=== PATIENT | male | born 1950 | race Caucasian/White ===

== ENCOUNTER 2019-03-15 11:58 | Emergency (ER) | payer BC, MEDICARE ==
[~2019-03-15 11:58] MED LIST: ISOVUE-370 76%-LOCM 1 ML ONE
[2019-03-15 12:27] LABS: #Eosinphils 0.3 thou/uL (0.0-0.7); #Lymphocytes 1.7 thou/uL (1.20-3.40); #Monocytes 0.5 thou/uL (0.11-0.59); #Neutrophils 2.9 thou/uL (1.40-6.50); %Basophils 0.2 % (0.0-1.0); %Eosinophils 5.6 % (0.0-10.0); %Lymphocytes 31.1 % (21.0-51.0); %Monocytes 8.9 % (0.0-10.0); %Neutrophils 54.1 % (42.0-75.0); Hemoglobin 11.5 g/dL (14.0-18.0); Mean Corpuscular HGB CONC 32.9 g/dL (32.0-36.0); Mean Corpuscular Hemoglobin 27.4 pg (27.0-31.0); Mean Corpuscular Volume 83.3 fL (78.0-98.0); Mean Platelet Volume 5.6 fL (7.4-10.4); Platelet Count 459 thou/uL (130-400); RBC Distribution Width 14.3 % (11.5-14.5); Red Blood Cell (RBC) Count 4.19 mill/uL (4.70-6.10); White Blood Cell (WBC) Count 5.3 thou/uL (4.8-10.8)
[2019-03-15 12:47] LABS: ALT (SGPT) 36 U/L (8-55); AST (SGOT) 28 U/L (5-34); Albumin 3.5 g/dL (3.4-4.8); Alkaline Phosphatase 221 U/L (40-150); Anion Gap 12 mmol/L (10-20); BUN (Urea Nitrogen) 15 mg/dL (8.4-25.7); Bilirubin, Total 1.5 mg/dL (0.2-1.2); Calc. Creatinine Clearance 0 mL/min (70-130); Calcium 9.3 mg/dL (7.8-10.44); Carbon Dioxide 26 mmol/L (23-31); Chloride 99 mmol/L (98-107); Estimated GFR-MDRD Greater than 90; Globulin 3.7 g/dL (2.4-3.5); Glucose 157 mg/dL (80-115); Potassium 3.5 mmol/L (3.5-5.1); Protein, Total 7.2 g/dL (5.8-8.1); Sodium 133 mmol/L (136-145)
--- NOTE | 2019-03-15 14:29 | CT ---
CT PULMONARY ANGIOGRAM WITH IV CONTRAST AND 3-D POSTPROCESSING: HISTORY: Shortness of breath, syncope FINDINGS: There is good contrast opacification of the pulmonary arterial vasculature without filling defects to suggest pulmonary embolism. Thoracic aorta is well opacified without aneurysm or dissection. No pleural or pericardial effusions are identified. There are changes of median sternotomy and CABG. A small pericardial effusion is present. No pleural effusions are identified. No pneumothoraces, foca l areas of consolidation or lung mass/nodules are seen. There are degenerative changes in the spine. There is biliary air and a biliary stent. IMPRESSION: No CT evidence of pulmonary embolism.
--- NOTE | 2019-03-16 14:37 | EKG ---
Test Reason : Blood Pressure : / mmHG Vent. Rate : 076 BPM Atrial Rate : 076 BPM P-R Int : 156 ms QRS Dur : 082 ms QT Int : 380 ms P-R-T Axes : 044 011 086 degrees QTc Int : 427 ms Normal sinus rhythm Normal ECG Confirmed by KIMBERLY ABDULLAHI D.O. ([id number]), news editor CHECO CORONADO ([id number]) on 03/16/2019 2:37:09 PM Referred By: Confirmed By:KIMBERLY ABDULLAHI D.O.
== END 2019-03-15 15:08 | disposition home or self-care (01) ==
LOC: ERS 11:58
DX: R55 Syncope and collapse (principal); I25.10 Atherosclerotic heart disease of native coronary artery without angina pectoris; I25.2 Old myocardial infarction; E78.5 Hyperlipidemia, unspecified
CPT/HCPCS: 36415; 71275; 80053; 85025; 85379; 93005

== ENCOUNTER 2019-03-26 11:45 | Outpatient (CLI) | payer BC, MEDICARE ==
--- NOTE | 2019-03-26 13:14 | MRI ---
MRI CERVICAL SPINE: HISTORY: Cervical radiculopathy. Multiplanar multisequence noncontrast enhanced MRI images cervical spine. There is prominence of the transverse ligament and panus surrounding C1-2 articulation. This compress es the thecal sac and results in moderate cord compression. C2-3: There is a broad-based disc osteophyte complex centrally resulting in moderate thecal sac compr ession. Moderate right and mild left-sided neural foraminal narrowing seen due to osteophyte encroachment. C3-4: There is disc desiccation. There is a broad-based disc osteophyte complex centrally compressing the thecal sac resulting in moderate to severe thecal sac compression. There is moderate cord compression. Moderate to severe bilateral neural foraminal narrowing is seen due to uncovertebral os teophyte hypertrophy. C4-5: There is a broad-based disc osteophyte complex centrally compressing the thecal sac resulting i n moderate thecal sac compression. The spinal cord is not significantly compressed. Moderate bilateral C4-5 neural foraminal narrowing is seen due to uncovertebral osteophyte hypertrophy. C5-6: There is disc desiccation seen. There is a broad-based disc osteophyte complex seen compressing the thecal sac resulting in severe thecal sac compression. Moderate to severe cord compression seen. There is severe neural foraminal narrowing due to uncovertebral osteophyte hypertrophy. C6-7: Disc desiccation seen. There is a broad-based disc bulge compressing the thecal sac resulting i n moderate to severe thecal sac compression. Moderate cord compression seen. Moderate bilateral neural foraminal narrowing seen. C7-T1: Unremarkable. IMPRESSION: Multilevel central and neural foraminal narrowing stenosis as described above. Transcribed Date/Time: 03/26/2019 1:20 PM
== END 2019-03-26 11:46 | disposition home or self-care (01) ==
LOC: SCSMRI 11:45
PROVIDERS: ATTEND Family Medicine
DX: M54.12 Radiculopathy, cervical region (principal); M48.02 Spinal stenosis, cervical region
CPT/HCPCS: 72141

== ENCOUNTER 2019-04-26 14:21 | Outpatient (CLI) | payer BC, MEDICARE ==
--- NOTE | 2019-04-26 15:02 | RAD ---
RADIOGRAPH CERVICAL SPINE 3 VIEWS: DATE: 04/26/2019. HISTORY: A 68-year-old female with bilateral cervical radiculopathy. TECHNIQUE: Three lateral views in flexion, extension, and neutral. FINDINGS: There are bulky end plate marginal osteophytes that protrude anteriorly into the prevertebral space a t C4-5, C5-6, C6-7. Moderate-sized anterior osteophytes at C3-4. The disk spaces are maintained. T hese bridging osteophytes result in loss of lordosis, and inflexibility between their levels. There are posterior end plate marginal osteophytes that encroach upon the anterior aspect of the spinal can al at C5-6. The bony cervical spinal canal is diffusely small in caliber on a congenital basis due t o developmentally short pedicles. This is exacerbated by the posterior end plate osteophyte at C5-6, and by ligamentum flavum thickening and central small disk protrusion at C3-4 as demonstrated on the MRI of 03/26/2019, with impingement on the spinal cord at those levels. There is flexion and extensi on motion with fulcrum at C7-T1. The actual C7-T1 level is obscured by the shoulders. There is no in stability. IMPRESSION: 1. Decreased range of motion due to DISH (diffuse idiopathic skeletal hyperostosis). 2. 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 3. No instability identified. BEVERLY [] POS: GEORGINA
== END 2019-04-26 14:22 | disposition home or self-care (01) ==
LOC: TBSIIMAG 14:21
PROVIDERS: ATTEND Neurological Surgery
DX: M48.02 Spinal stenosis, cervical region (principal); M48.12 Ankylosing hyperostosis [Forestier], cervical region; M47.812 Spondylosis without myelopathy or radiculopathy, cervical region
CPT/HCPCS: 72040

== ENCOUNTER 2019-05-16 16:00 | Inpatient (IN) | payer BC, MEDICARE ==
--- NOTE | 2019-05-15 16:55 | HP ---
HISTORY OF PRESENT ILLNESS: Mr. Arreguin is a 68-year-old male, who reports to our office for evaluation of left arm pain and weakness. The patient states that following his heart surgery approximately two and half months ago, he had significant weakness, numbness, and tingling pain in the left arm and hand. He has been unable to extend and flex his fingers on the left side. Decreased sensation in pinky, ring, and middle fingers and pointer fingers on the left. The worst is at the pinky. The patient has significant weakness on the left side, pain is radiating from behind the shoulder blade down the back of that arm to his hand. Since he has started Lyrica, most of the pain has improved, now, mostly tingling and numbness. The patient has tried medications, hot and cold. No physical therapy or injections at this time. The patient denies right-sided symptoms. No neck pain and balance is acceptable. REVIEW OF SYSTEMS: A 10-point review of systems has been completed and is negative other than stated in the above HPI. PAST MEDICAL HISTORY: hyperlipidemia, heart disease, and diabetes. PAST SURGICAL HISTORY: Cardiac bypass, cholecystectomy, and ERCP. SOCIAL HISTORY: The patient is a former smoker. Denies alcohol or drug use. Sexually active. He is . MEDICATIONS: Lyrica, baby aspirin, atorvastatin, and metoprolol. ALLERGIES: NO KNOWN DRUG ALLERGIES. PHYSICAL EXAMINATION: CONSTITUTIONAL: The patient is awake, alert, and oriented x3. NECK: Soft and supple. No masses are noted. Range of motion is intact and nonpainful. RESPIRATIONS: Normal work of breathing on room air. NEUROLOGIC: Awake, alert, and oriented x3. Memory, attention, and fund of knowledge are normal. Cranial nerves, grossly intact. Upper extremities, 5/5 bilateral strength in deltoids; left 4/5, biceps; left 3+/5, triceps; left 3+/5, wrist extension; left 2/5, finger extension; left 2/5, finger intrinsics; decreased sensation in left hand gradually improving towards the thumb. Reflexes are brisk. Spurling is negative. Negative Tinel's . IMAGING DATA: Cervical MRI, severe cervical stenosis with cord compression at C3-C4 and C5-C6; moderate stenosis, left greater than right, C6-C7. ASSESSMENT AND PLAN: Cervical stenosis with cervical radiculopathy without myelopathy. Dr. Denson has offered surgery ACDF; C3-C4, C5-C6, and C6-C7. The patient states that he understands the risks and is willing to proceed with surgery. Job ID: [id number]
[2019-05-17] MEDS ORDERED: Sodium Chloride 0.9% 10 ML ONE ×2 (10:26→14:47)
[2019-05-17] MEDS ORDERED: Thrombin 5000 UNITS/5 ML VIAL ONE (10:26)
[2019-05-17 10:59] LABS: #Basophils 0.1 thou/uL (0.0-0.2); #Eosinphils 0.2 thou/uL (0.0-0.7); #Monocytes 0.6 thou/uL (0.11-0.59); #Neutrophils 2.8 thou/uL (1.40-6.50); %Eosinophils 3.2 % (0.0-10.0); %Lymphocytes 44.6 % (21.0-51.0); %Monocytes 8.4 % (0.0-10.0); %Neutrophils 42.8 % (42.0-75.0); Hemoglobin 14.3 g/dL (14.0-18.0); Mean Corpuscular HGB CONC 32.1 g/dL (32.0-36.0); Mean Corpuscular Hemoglobin 26.7 pg (27.0-31.0); Platelet Count 288 thou/uL (130-400); RBC Distribution Width 14.8 % (11.5-14.5); Red Blood Cell (RBC) Count 5.37 mill/uL (4.70-6.10); White Blood Cell (WBC) Count 6.6 thou/uL (4.8-10.8)
[2019-05-17 11:03] LABS: PTT 32.9 SEC (22.9-36.1); Prothrombin Time 13.4 SEC (12.0-14.7)
[2019-05-17] MEDS ORDERED: Fentanyl 100 MCG/2 ML VIAL ONE (11:21)
[2019-05-17] MEDS ORDERED: Glycopyrrolate 0.2 MG/ML 5 ML SYRINGE ONE (16:08)
[2019-05-17] MEDS ORDERED: PROPOFOL 200 MG/20 ML VIAL ONE (16:08)
[2019-05-17] MEDS ORDERED: Dexamethasone 20 MG/5 ML VIAL ONE (16:08)
[2019-05-17] MEDS ORDERED: Lidocaine 1% PF 5 ML VIAL ONE (16:08)
[2019-05-17] MEDS ORDERED: Ondansetron PF 4 MG/2 ML Vial ONE (16:08)
[2019-05-17] MEDS ORDERED: Rocuronium Bromide 10 MG/ML (10ML VIAL) ONE (16:08)
[2019-05-17] MEDS ORDERED: ePHEDrine 50 MG/ML VIAL ONE (16:08)
[2019-05-17] MEDS ORDERED: Vecuronium 10 MG VIAL ONE (16:08)
[2019-05-17] MEDS ORDERED: PHENYLEPHRINE-NS 100 MCG/ML 10 ML SYRINGE ONE (16:08)
[2019-05-17] MEDS ORDERED: Promethazine HCl 25 MG/ML VIAL IM PRN ×2 (16:40→17:07)
[2019-05-17] MEDS ORDERED: Promethazine HCl 25 MG/ML VIAL SLOW IVP PRN (16:40)
[2019-05-17] MEDS ORDERED: Morphine Sulfate 2 MG/ML SYRINGE SLOW IVP PRN (16:40)
[2019-05-17] MEDS ORDERED: PACU-Morphine 4MG/ML VIAL SLOW IVP PRN (16:40)
[2019-05-17] MEDS ORDERED: HYDROmorphone 2 MG/ML VIAL SLOW IVP PRN (16:40)
[2019-05-17] MEDS ORDERED: Ondansetron HCl/PF 4 MG/2 ML Vial IVP PRN (16:40)
[2019-05-17] MEDS ORDERED: Tamsulosin HCl 0.4 MG CAP PO PRN (17:05)
[2019-05-17] MEDS ORDERED: Acetaminophen/Codeine 30-300mg Tablet PO PRN ×2 (17:05)
[2019-05-17] MEDS ORDERED: Morphine 2 MG/ML SYRINGE SLOW IVP PRN (17:05)
[2019-05-17] MEDS ORDERED: tiZANidine HCl 4 MG TAB PO PRN (17:05)
[2019-05-17] MEDS ORDERED: Acetaminophen 325 MG TAB PO PRN (17:05)
[2019-05-17] MEDS ORDERED: diphenhydrAMINE 50 MG/ML VIAL IVP PRN (17:05)
[2019-05-17] MEDS ORDERED: diphenhydrAMINE 25 MG CAP PO PRN (17:05)
[2019-05-17] MEDS ORDERED: Bisacodyl 10 MG SUPP PR PRN (17:07)
[2019-05-17] MEDS ORDERED: Milk Of Magnesia 30 ML UDCUP PO PRN (17:07)
[2019-05-17] MEDS ORDERED: Promethazine 25 MG TAB PO PRN (17:07)
[2019-05-17] MEDS ORDERED: Ondansetron PF 4 MG/2 ML Vial IVP PRN (17:07)
[2019-05-17] MEDS ORDERED: Mag-Al 1200 mg/1200 mg/30 ML UDCUP PO PRN (17:07)
[2019-05-17] MEDS ORDERED: PREGABALIN PO PRN (17:10)
--- NOTE | 2019-05-17 17:20 | EKG ---
Test Reason : PREOP Blood Pressure : / mmHG Vent. Rate : 056 BPM Atrial Rate : 056 BPM P-R Int : 156 ms QRS Dur : 080 ms QT Int : 418 ms P-R-T Axes : 059 000 049 degrees QTc Int : 403 ms Sinus bradycardia with sinus arrhythmia Anterior infarct , age undetermined Abnormal ECG When compared with ECG of 15-MAR-2019 12:31, Nonspecific T wave abnormality no longer evident in Lateral leads Confirmed by DR. Austin GARAY ([id number]) on 05/17/2019 5:20:06 PM Referred By: JAVIER Confirmed By:DR. Austin GARAY
--- NOTE | 2019-05-17 17:32 | OP ---
DATE OF PROCEDURE: 05/17/2019 PAD CUTTER: Nohemi Pena PA-C PREOPERATIVE INDICATION: Prevent neurological deterioration. PREOPERATIVE DIAGNOSES: Multilevel cervical stenosis with myelopathy and radiculopathy. POSTOPERATIVE DIAGNOSES: Multilevel cervical stenosis with myelopathy and radiculopathy. PROCEDURES PERFORMED: Anterior cervical diskectomy, intervertebral arthrodesis, placement of intervertebral biomechanical device, an anterior cervical plating at C3-C4 and separately at C5-C6 and C6-C7, local morselized autograft, morselized allograft, and operating microscope. PREOPERATIVE MEDICATION: Ancef 2 g IV. DRAIN NUMBER: Zero. DRAIN TYPE: None. DESCRIPTION OF PROCEDURE: The patient was brought to the operating room. General endotracheal anesthesia was induced. The patient was positioned supine on the operating table, keeping his neck in normal anatomic alignment. A lateral fluoro radiograph was used to plan our incision. The right side of the neck was sterilely prepped and draped. We opened with a 10 blade knife and controlled bleeding with bipolar cautery. We dissected sharply to the platysma and cut this muscle in-line with our incision. We developed planes above and below the platysma and above the sternocleidomastoid, so that we could dissect superiorly and inferiorly giving us access from C3 through C7. A lateral fluoro radiograph confirmed the levels upon which we were operating. We then elevated the longus colli muscles off the anterior surface of C3 and C4 as well as C5, C6, and C7. We placed a lateral retractors under the longus colli muscles at C3-C4 and removed an anterior osteophyte. We incised the disk space and removed an anterior osteophyte. Distraction pins were placed at C3 and C4 and we distracted across the intervening interspace. We incised the interspace with a 15 blade knife and removed disk contents using curettes and rongeurs. The operative microscope was brought into the field. Under microscopic magnification using microsurgical techniques, we removed the remainder of the intervertebral disk. We accessed the ventral epidural space with a microcurette and used Kerrison rongeurs to remove osteophytes and posterior longitudinal ligament across the entire interspace from one neural foramen to the other. There was no further neural compression after the diskectomy and osteophytectomy. We could visualize motion of the spinal cord through the dura, which was reassuring for decompression. We then prepared the endplates for grafting. We measured the height of the interspace to 7 mm. A 7 mm PEEK intervertebral graft was brought into the field. We loaded this graft with our demineralized bone matrix. The bone removed during osteophytectomy, was carefully cleaned of soft tissue attachments morcellized and added into the demineralized bone matrix as our fusion substrate. This was packed into the PEEK interbody device and that device was advanced into the interspace under radiographic guidance. We then removed our lateral retractors and our distraction pins and moved down to C5-C6 and C6-C7. Our retractors placed under the longus colli muscles that we had elevated. This was at C6. We just placed distraction pins at C5 and C7 and distracted across both of the intervening interspaces. We had to do significant amount of osteophyte removal before we could even enter the interspace here. We incised with a 15 blade knife and removed disk contents using curettes and rongeurs. Continuing under the operating microscope, we removed the remainder of the intervertebral disk. We accessed the ventral epidural space at each interspace with a microcurette and used a Kerrisons to remove post posterior osteophytes and posterior longitudinal ligament across the entire interspace from one neural foramen to the other. Once again, there was good excursion of the spinal cord that was visible through the dura with each heartbeat. This was also quite reassuring for the amount of decompression that we achieved. We entered the neural foramina, had any compression either. We then turned our attention to arthrodesis. We prepared the endplates for grafting at C5-C6 and C6-C7, We measured the height at the interspace to 7 mm at C5-C6 and 10 mm at C6-C7. The appropriately-sized PEEK grafts were brought into the field. Once again, we loaded the PEEK grafts with demineralized bone matrix and morselized autograft and advanced them into the interspaces under radiographic guidance to the appropriate depth. We then removed the operating microscope. A 34 mm anterior cervical plate was brought into the field. We drilled corporation pilot holes through the plate into the vertebral bodies at C5, C6, and C7. We affixed the plate using a fixed angle screws at C7 and variable angle screws at C5 and C6 and then we engaged the locking mechanism over each of the 6 screws. In a similar fashion, we placed a plate at C3-C4. Here, a 12 mm plate was brought into the field. We drilled corporation pilot holes through the plate into C3 and C4 and affixed the plate using fixed angle screws at C4 and variable angle screws at C3. We engaged the locking mechanism over each of these four screws. We irrigated copiously with bacitracin irrigation. We took AP and lateral fluoro radiographs, confirmed adequate positioning of our instrumentation. We closed the wound in anatomical layers. We applied a sterile dressing. This was a clean case, no contamination. Job ID: [id number]
[2019-05-17] MEDS ORDERED: Promethazine HCl 25 MG/ML VIAL ONE (18:07)
[2019-05-17] MEDS: Morphine 4 MG/ML VIAL SLOW IVP PRN (18:51)
[2019-05-17] MEDS ORDERED: Atorvastatin Calcium 40 MG TAB PO SCH (21:00)
[2019-05-17] MEDS: Sodium Chloride 0.9% 1,000 ML IV SCH (21:27)
[2019-05-17] MEDS ORDERED: Cepastat Lozenges 1 LOZ PO PRN (22:11)
[2019-05-17 23:34] VITALS: BMI 26.9
[2019-05-18] MEDS ORDERED: CEFAZOLIN 2 GM in Premix Bag 1 BAG IVPB SCH (00:15)
[2019-05-18] MEDS: Morphine 4 MG/ML VIAL SLOW IVP PRN ×2 (01:03→04:07)
[2019-05-18] MEDS: CEFAZOLIN 2 GM in Sodium Chloride 0.9% 100 ML IVPB SCH ×2 (01:04→08:47)
--- NOTE | 2019-05-18 07:13 | PRG ---
DATE OF SERVICE: 05/18/2019 I saw Mr. Arreguin this morning. He is one day out from an ACDF at C3-C4 and then at C5-C6 and C6-C7. His throat has been sore. Had little bit of coughing yesterday with liquids, but tried a second time, and it went down well. He tells me his arm is still weak. He is hoping for return of function. Overnight, the vitals have been stable. I do not find any new deficits, but there is some significant upper motor neuron weakness including hand intrinsics, finger extensors, and triceps in the left upper extremity. He reports his soaker strength is stronger than it was before. His concurs for that evaluation. Mr. Arreguin eats his breakfast well this morning using a chin tuck method and sitting straight up, then I think he can be discharged. Bandage can be removed today. He can shower tomorrow. He will be on aggressive physical and occupational therapy that will benefit him in recovery. Job ID: [id number]
[2019-05-18] MEDS: Sodium Chloride 0.9% 1,000 ML IV SCH (08:47)
[2019-05-18 10:56] VITALS: BP 113/69; TEMP 98.3
--- NOTE | 2019-05-18 11:45 | PDOC.PN ---
- Subjective Encounter Start Date: 05/18/19 Encounter Start Time: 09:45 Patient seen and examined for med mngt. Follows Dr Rolon. No CP/SOB. Pain controlled. No new complaints. No overnight events - Objective MAR Reviewed: Yes Vital Signs & Weight: Vital Signs (12 hours) Temp Pulse Resp BP BP Pulse Ox 05/18/19 10:55 98.3 F 82 18 113/69 94 L 05/18/19 08:15 98.8 F 74 18 133/76 96 05/18/19 08:00 96 Weight Weight 198 lb 6.4 oz I&O: 05/17/19 05/18/19 05/19/19 06:59 06:59 06:59 Intake Total 20 Balance 20 Result Diagrams: 05/17/19 10:46 Additional Labs: Laboratory Tests 03/15/19 12:19 Sodium 133 L Total Bilirubin 1.5 H AST 28 ALT 36 Alkaline Phosphatase 221 H EKG Reviewed by me: Yes (SB) Phys Exam - Physical Examination Constitutional: NAD Respiratory: no wheezing, no rhonchi Cardiovascular: RRR, no rub midline scar from previous CABG Gastrointestinal: soft, non-tender, positive bowel sounds Musculoskeletal: no edema Neurological: moves all 4 limbs Dx/Plan (1) HTN (hypertension) Code(s): I10 - ESSENTIAL (PRIMARY) HYPERTENSION Status: Chronic (2) CAD (coronary artery disease) Code(s): I25.10 - ATHSCL HEART DISEASE OF [place] CORONARY ARTERY W/O ANG PCTRS Status: Chronic Comment: s/p CABG 02/15 (3) HLD (hyperlipidemia) Code(s): E78.5 - HYPERLIPIDEMIA, UNSPECIFIED Status: Chronic (4) Hyponatremia Code(s): E87.1 - HYPO-OSMOLALITY AND HYPONATREMIA Status: Acute (5) Abnormal LFTs Code(s): R94.5 - ABNORMAL RESULTS OF LIVER FUNCTION STUDIES Status: Acute Comment: ?etio - Plan plan discussed w/ family, DVT proph w/SCDs Cont Toprol XL -: Cont PRN Lyrica -: Repeat CMP as outpt -: Cont Statins, Full code. DPOA - Spouse -: Thank you for this consultation. Will follow Review of Systems - Review of Systems Respiratory: negative: Cough, Dry, Shortness of Breath, Hemoptysis, SOB with Excertion, Pleuritic Pain, Sputum, Wheezing Cardiovascular: negative: chest pain, palpitations, orthopnea, paroxysmal nocturnal dyspnea, edema, light headedness, other Gastrointestinal: negative: Nausea, Vomiting, Abdominal Pain, Diarrhea, Constipation, Melena, Hematochezia, Other - Medications/Allergies Allergies/Adverse Reactions: Allergies Allergy/AdvReac Type Severity Reaction Status Date / Time No Known Allergies Allergy Verified 05/16/19 10:32 Medications: Current Medications Acetaminophen (Tylenol) 650 mg PO Q4H PRN PRN Reason: ZHOU/Fever Or Mild Pain (1-3) Acetaminophen/Codeine Phosphate (Tylenol #3) 1 tab PO Q3H PRN PRN Reason: Mild Pain (1-3) Acetaminophen/Codeine Phosphate (Tylenol #3) 2 tab PO Q3H PRN PRN Reason: Moderate Pain (4-6) Al Hydroxide/Mg Hydroxide (Maalox) 30 ml PO Q4H PRN PRN Reason: Indigestion Atorvastatin Calcium (Lipitor) 40 mg PO [facility] Last Admin: 05/17/19 21:29 Dose: Not Given Bisacodyl (Dulcolax) 10 mg VT Q12H PRN PRN Reason: Constipation Diphenhydramine HCl (Benadryl) 25 mg IVP Q6H PRN PRN Reason: Itching Diphenhydramine HCl (Benadryl) 25 mg PO Q6H PRN PRN Reason: Itching Sodium Chloride (Normal Saline 0.9%) 1,000 mls @ 75 mls/hr IV .[id number] [facility] Last Admin: 05/18/19 08:47 Dose: Not Given Magnesium Hydroxide (Milk Of Magnesium) 30 ml PO Q12H PRN PRN Reason: Constipation Metoprolol Succinate (Toprol Xl) 12.5 mg PO [facility] Last Admin: 05/17/19 21:30 Dose: Not Given Morphine Sulfate (Morphine) 2 mg SLOW IVP Q1H PRN PRN Reason: Moderate Breakthrough Pain Morphine Sulfate (Morphine) 4 mg SLOW IVP Q1H PRN PRN Reason: Severe Breakthrough Pain Last Admin: 05/18/19 04:07 Dose: 4 mg Non-Formulary Medication (Pregabalin [Lyrica]) 1 cap PO ASDIR PRN PRN Reason: Pain Ondansetron HCl (Zofran) 4 mg IVP DAILYPRN PRN PRN Reason: Nausea Pantoprazole Sodium (Protonix) 40 mg PO DAILY [facility] Last Admin: 05/18/19 08:49 Dose: Not Given Promethazine HCl (Phenergan) 12.5 mg PO Q4H PRN PRN Reason: Nausea/Vomiting Promethazine HCl (Phenergan) 12.5 mg IM Q4H PRN PRN Reason: Nausea/Vomiting Sodium Chloride (Flush - Normal Saline) 10 ml IVF PRN PRN PRN Reason: Saline Flush Tamsulosin HCl (Flomax) 0.4 mg PO 0600 PRN PRN Reason: urninary retention Throat Lozenges (Cepastat Lozenges) 1 mary PO PRN PRN PRN Reason: SORE THROAT Last Admin: 05/18/19 08:47 Dose: 1 mary Tizanidine HCl (Zanaflex) 4 mg PO Q6H PRN PRN Reason: Muscle Spasm
== END 2019-05-18 14:00 | disposition home or self-care (01) | DRG 472 ==
LOC: SURG A 05-17 10:19
PROVIDERS: ADMIT Neurological Surgery; ATTEND Neurological Surgery
PROC: 0RG20A0 Fusion of 2 or more Cervical Vertebral Joints with Interbody Fusion Device, Anterior Approach, Anterior Column, Open Approach (ICD-10-PCS; principal; 2019-05-17)
PROC: 0RT30ZZ Resection of Cervical Vertebral Disc, Open Approach (ICD-10-PCS; 2019-05-17)
DX: M48.02 Spinal stenosis, cervical region (principal); E87.1 Hypo-osmolality and hyponatremia; G95.89 Other specified diseases of spinal cord; E78.5 Hyperlipidemia, unspecified; E11.9 Type 2 diabetes mellitus without complications; M54.12 Radiculopathy, cervical region; I10 Essential (primary) hypertension; I25.10 Atherosclerotic heart disease of native coronary artery without angina pectoris; R94.5 Abnormal results of liver function studies; Z95.1 Presence of aortocoronary bypass graft; Z90.49 Acquired absence of other specified parts of digestive tract; Z87.891 Personal history of nicotine dependence; Z79.82 Long term (current) use of aspirin; Z79.899 Other long term (current) drug therapy
CPT/HCPCS: 36415; 76000; 85025; 85610; 85730; 93005; 93010; C1713; C1776; J0131; J0690; J2270; J2550; J3010; J3490

== ENCOUNTER 2019-07-08 15:14 | Outpatient (CLI) | payer BC, MEDICARE ==
--- NOTE | 2019-07-08 15:30 | RAD ---
Cervical spine 3 views: 07/08/2019 COMPARISON: 04/26/2019 HISTORY: Evaluate cervical spine following surgery, neck pain FINDINGS: The patient is status post interval anterior discectomy and fusion at C3-4. New anterior di scectomy and fusion hardware also noted at C5-6/C6-7. No evidence for hardware failure. There is prominent anterior osteophyte formation at C4-5. No significant anterolisthesis or retrolisthesis is noted. C1-2 articulation appears normal on open-mouth odontoid imaging. There is prominent multilevel bilateral facet and uncovertebral osteophyte formation within the cervi baljit spine. Midline sternotomy wires and mediastinal clips are present. Impression: Postoperative and degenerative change within the cervical spine as detailed above.
== END 2019-07-08 15:15 | disposition home or self-care (01) ==
LOC: TBSIIMAG 15:14
PROVIDERS: ATTEND Neurological Surgery
DX: M54.2 Cervicalgia (principal); M47.812 Spondylosis without myelopathy or radiculopathy, cervical region; Z98.890 Other specified postprocedural states
CPT/HCPCS: 72040

== ENCOUNTER 2023-08-29 12:33 | Outpatient (CLI) | payer MEDICARE, OTHER | END 2023-08-29 12:34 | disposition home or self-care (01) | LOC: BICMRI 12:33 | PROVIDERS: ATTEND Orthopaedic Surgery | DX: M23.41 Loose body in knee, right knee (principal); M25.461 Effusion, right knee; M22.8X1 Other disorders of patella, right knee ==

== ENCOUNTER 2025-09-02 09:02 | Emergency (ER) | payer MEDICARE ==
[2025-09-02 11:35] LABS: #Basophils Less than 0.03 10x3/uL (0.0-0.2); #Eosinophils 0.09 10x3/uL (0.0-0.7); #Monocytes 0.51 10x3/uL (0.11-0.59); #Neutrophils 4.19 10x3/uL (1.40-6.50); %Basophils 0.3 % (0.0-1.0); %Eosinophils 1.5 % (0.0-10.0); %Lymphocytes 19.9 % (21.0-51.0); %Monocytes 8.5 % (0.0-10.0); %Neutrophils 69.6 % (42.0-75.0); Hematocrit 44.0 % (42.0-52.0); Hemoglobin 14.7 g/dL (14.0-18.0); Mean Corpuscular Hemoglobin 28.5 pg (27.0-31.0); Mean Corpuscular Volume 85.4 fL (78.0-98.0); Platelet Count 254 10x3/uL (130-400); Red Blood Cell (RBC) Count 5.15 mill/uL (4.70-6.10); White Blood Cell (WBC) Count 6.02 10x3/uL (4.8-10.8)
[2025-09-02 11:52] LABS: ALT (SGPT) 58 U/L (Less than 45); AST (SGOT) 87 U/L (11-34); Albumin 4.1 g/dL (3.1-4.5); Alkaline Phosphatase 67 U/L (40-110); Anion Gap 13 mmol/L (10-20); BUN (Urea Nitrogen) 11 mg/dL (8.4-25.7); Bilirubin, Total 0.9 mg/dL (0.3-1.2); Calc. Creatinine Clearance 0 mL/min (70-130); Calcium 9.2 mg/dL (7.8-10.44); Carbon Dioxide 27 mmol/L (23-31); Chloride 101 mmol/L (98-107); Globulin 3.3 g/dL (2.4-3.5); Glucose 137 mg/dL (83-110); Potassium 4.0 mmol/L (3.5-5.1); Sodium 137 mmol/L (136-145)
== END 2025-09-02 14:35 | disposition home or self-care (01) ==
LOC: ERS 09:02
DX: I10 Essential (primary) hypertension (principal); R94.5 Abnormal results of liver function studies; E11.9 Type 2 diabetes mellitus without complications; Z55.6 Problems related to health literacy; Z87.891 Personal history of nicotine dependence
CPT/HCPCS: 71045; 80053; 84484; 85025; 93005